=== PATIENT | male | born 1965 | race Caucasian/White ===

== ENCOUNTER → 2021-11-19 10:17 | Outpatient (CLI) | payer OTHER, SELFPAY ==
[2021-11-19 12:09] LABS: Hematocrit 45.7 % (41-53); Hemoglobin 15.2 g/dL (13.5-17.5); Mean Corpuscular HGB Conc 33.2 % (30-36); Mean Corpuscular Hemoglobin 29.9 PG (26-34); Platelet Count 255 X10^3/uL (150-400); Red Blood Cell Count 5.08 X10^6/uL (4.5-5.9); Red Cell Distribution Width 13.8 % (11.6-14.8); White Blood Cell Count 5.5 X10^3/uL (4.5-11.0)
[2021-11-19 12:25] LABS: Alanine Aminotransferase 25 IU/L (<50); Albumin 4.5 g/dL (3.5-5.0); Albumin Globulin Ratio 1.5 (1.0-2.8); Alkaline Phosphatase 69 U/L (38-126); Aspartate Aminotransferase 33 IU/L (17-59); BUN Creatinine Ratio 18.6 (6-22); Bilirubin Total 0.4 mg/dL (0.2-1.3); Blood Urea Nitrogen 18 mg/dL (9-20); Calcium 9.3 mg/dL (8.4-10.2); Carbon Dioxide 31 mmol/L (22-32); Chloride 103 mmol/L (98-107); Cholesterol 260 mg/dL (140-199); Estimated Glomerular Filt Rate > 60 mL/min (>60); Globulin 3.1 g/dL (1.7-4.1); Glucose 90 mg/dL (70-100); HDL Cholesterol 93 mg/dL (40-60); HEMOLYSIS < 15 (0-50); LDL Cholesterol Calculated 131 mg/dL (<100); Potassium 4.5 mmol/L (3.4-5.1); Sodium 140 mmol/L (137-145); Total Protein 7.6 g/dL (6.3-8.2); Triglycerides 182 mg/dL (35-150)
[2021-11-19 12:57] LABS: TSH w/ Reflex to FT4 6.46 uIU/mL (0.47-4.68)
[2021-11-19 13:34] LABS: Free T4, Direct Thyroxine 0.81 ng/dL (0.78-2.19)
== END ==
PROVIDERS: PCP Internal Medicine; Referring Provider Internal Medicine; Visit Provider Internal Medicine
DX: E78.2 Mixed hyperlipidemia (principal); Z12.5 Encounter for screening for malignant neoplasm of prostate
CPT/HCPCS: 36415; 80053; 80061; 84439; 84443; 85027; G0103

== ENCOUNTER → 2022-01-28 16:55 | Outpatient (CLI) | payer OTHER, SELFPAY ==
[2022-01-28 18:03] LABS: Free T3, Triiodothyronine Free 3.79 pg/mL (2.77-5.27); Free T4, Direct Thyroxine 0.87 ng/dL (0.78-2.19)
[2022-01-28 18:16] LABS: Thyroid Stimulating Hormone 4.25 uIU/mL (0.47-4.68)
[2022-01-29 05:37] LABS: Thyroid Peroxidase Antibodies 44 IU/mL (0-34)
== END ==
PROVIDERS: PCP Internal Medicine; Referring Provider Internal Medicine; Visit Provider Internal Medicine
DX: E03.9 Hypothyroidism, unspecified (principal)
CPT/HCPCS: 36415; 84439; 84443; 84481; 86376

== ENCOUNTER → 2022-02-21 09:56 | Outpatient (CLI) | payer OTHER, SELFPAY ==
--- NOTE | 2022-02-21 | DI.CT.S_ITS ---
PROCEDURE: CT SINUS SCREEN WO CON INDICATIONS: Other specified disorders of nose and nasal sinuses TECHNIQUE: Noncontrast 3.0 mm axial images acquired from the frontal sinuses to the mid-sella, with coronal and sagittal reformats. For radiation dose reduction, the following was used: automated exposure control, adjustment of mA and/or kV according to patient size. COMPARISON: None. FINDINGS: Image quality: Excellent. Maxillary Sinuses: No bony remodeling or destruction. Sinuses are clear. Ethmoid Air Cells: No bony remodeling or destruction. There is a 7 mm mucous retention cyst seen involving the anterior left ethmoid air cells. Sinuses are otherwise clear. Sphenoid Sinuses: No bony remodeling or destruction. Sinuses are clear. Frontal Sinuses: No bony remodeling or destruction. Sinuses are clear. Ostiomeatal Complexes: Ostiomeatal complexes are patent. No Irma cells. Miscellaneous: Visualized intra-orbital contents are normal. There are small bilateral negro bullosa is seen, right larger than left. There is mild rightward nasal septal deviation. The arachnoid cyst is incidentally noted involving the anterior aspect of the left middle cranial fossa. IMPRESSION: No significant active paranasal sinus disease is seen. There is mild rightward nasal septal deviation. Small bilateral negro bullosa can be seen. Dictated by: Markie Sierra M.D. on 02/21/2022 at 10:10 Approved by: Markie Sierra M.D. on 02/21/2022 at 10:11
== END ==
PROVIDERS: PCP Internal Medicine; Referring Provider Otolaryngology; Visit Provider Otolaryngology
DX: R44.8 Other symptoms and signs involving general sensations and perceptions (principal); J34.89 Other specified disorders of nose and nasal sinuses; J32.4 Chronic pansinusitis; J34.2 Deviated nasal septum; J34.3 Hypertrophy of nasal turbinates
CPT/HCPCS: 70486

== ENCOUNTER → 2022-11-17 16:09 | Outpatient (CLI) | payer OTHER, SELFPAY ==
[2022-11-17 18:35] LABS: TSH w/ Reflex to FT4 2.18 uIU/mL (0.47-4.68)
[2022-11-17 23:55] LABS: BUN Creatinine Ratio 20.2 (6-22); Blood Urea Nitrogen 19 mg/dL (9-20); Calcium 9.5 mg/dL (8.4-10.2); Carbon Dioxide 28 mmol/L (22-32); Chloride 101 mmol/L (98-107); Cholesterol 253 mg/dL (140-199); Estimated Glomerular Filt Rate > 60 mL/min (>60); Glucose 91 mg/dL (70-100); HDL Cholesterol 74 mg/dL (40-60); HEMOLYSIS 20 (0-50); LDL Cholesterol Calculated 129 mg/dL (<100); Potassium 4.6 mmol/L (3.4-5.1); Sodium 138 mmol/L (137-145); Triglycerides 249 mg/dL (35-150)
[2022-11-18 00:22] LABS: Prostate Specific Antigen Scrn 2.41 ng/mL (0.1-4.0)
== END ==
PROVIDERS: PCP Internal Medicine; Referring Provider Internal Medicine; Visit Provider Internal Medicine
DX: Z00.00 Encounter for general adult medical examination without abnormal findings (principal); E03.9 Hypothyroidism, unspecified; E78.2 Mixed hyperlipidemia; Z12.5 Encounter for screening for malignant neoplasm of prostate
CPT/HCPCS: 36415; 80048; 80061; 84443; G0103

== ENCOUNTER → 2023-01-20 12:15 | Outpatient (CLI) | payer OTHER, SELFPAY ==
--- NOTE | 2023-01-20 12:16 | DI.RAD.S_ITS ---
PROCEDURE: XR KNEE RT 3V INDICATIONS: right knee pain TECHNIQUE: 2 views of the knee were acquired. COMPARISON: None. FINDINGS: Bones: No fractures or dislocations. Osteophytic lipping at the patella. No suspicious bony lesions. Soft tissues: Suprapatellar joint effusion. No suspicious soft tissue calcifications. Chondrocalcinosis. IMPRESSION: No acute osseous abnormality. Chondrocalcinosis. Dictated by: Stas Sanchez M.D. on 01/20/2023 at 15:06 Approved by: Stas Sanchez M.D. on 01/20/2023 at 15:08
== END ==
PROVIDERS: PCP Internal Medicine; Referring Provider Internal Medicine; Visit Provider Internal Medicine
DX: M11.261 Other chondrocalcinosis, right knee (principal); M25.561 Pain in right knee
CPT/HCPCS: 73562

== ENCOUNTER → 2023-11-20 11:00 | Outpatient (CLI) | payer OTHER, SELFPAY ==
[2023-11-20 12:44] LABS: BUN Creatinine Ratio 21.3 (6-22); Blood Urea Nitrogen 19 mg/dL (9-20); Calcium 9.2 mg/dL (8.4-10.2); Carbon Dioxide 32 mmol/L (22-32); Chloride 103 mmol/L (98-107); Cholesterol 215 mg/dL (140-199); Estimated Glomerular Filt Rate > 60 mL/min (>60); Glucose 77 mg/dL (80-110); HDL Cholesterol 85 mg/dL (40-60); HEMOLYSIS < 15 (0-50); LDL Cholesterol Calculated 106 mg/dL (<100); Sodium 139 mmol/L (137-145); Triglycerides 118 mg/dL (35-150)
[2023-11-20 13:10] LABS: Prostate Specific Antigen Scrn 2.06 ng/mL (0.1-4.0); TSH w/ Reflex to FT4 2.04 uIU/mL (0.47-4.68)
== END ==
PROVIDERS: PCP Internal Medicine; Referring Provider Internal Medicine; Visit Provider Internal Medicine
DX: Z12.5 Encounter for screening for malignant neoplasm of prostate (principal); E03.9 Hypothyroidism, unspecified; E78.2 Mixed hyperlipidemia
CPT/HCPCS: 36415; 80048; 80061; 84443; G0103

== ENCOUNTER 2023-12-07 13:17 | Day surgery (SDC) | payer OTHER, SELFPAY ==
--- NOTE | 2023-12-07 | PATH_ITS ---
[facility] Accession Number: [id number] No. of containers..01 Tissue . 01 Material submitted: . rectum - RECTAL POLYP . 01 Diagnosis: RECTAL POLYP: Tubular adenoma. [facility] 12/15/2023 1040 Local . 01 Electronically signed: . Chriss Blackwell MD, Pathologist NPI- [id number] . 01 Gross description: . RECTAL POLYP: Received in formalin is 1 fragment(s) of alfonso, soft tissue measuring 0.5 x 0.4 x 0.3 cm submitted entirely in 1 cassette(s) /ALEX 12/15/2023 1040 Local . 01 Pathologist provided ICD-10: D12.8 . 01 CPT . 557967 Specimen Comment: A courtesy copy of this report has been sent to [phone] Performed at: [address] [id number] MD Chriss Blackwell MD Phone: [phone]
[2023-12-07 13:36] VITALS: BP 142/80; PULSE 60; RESP 16; TEMP 36.5; O2SAT 99
[2023-12-07] MEDS: LACTATED RINGERS 1,000 ML 100 ML IV (13:47)
--- NOTE | 2023-12-07 13:49 | P.HP_ITS ---
History of Present Illness History of Present Illness Date Patient Seen: 12/07/23 Time Patient Seen: 13:49 Chief complaint: SDC Narrative: Mitchell is a 58-year-old man who is here for colonoscopy. He last had 1 about 10 years ago. He had no polyps. No family history of colon cancer. [facility] Medical History (Updated 12/07/23 @ 13:50 by Ben Lora MD) Trigger finger, right little finger Mixed hyperlipidemia Acquired hypothyroidism History of nonmelanoma skin cancer Right-sided sensorineural hearing loss Right-sided tinnitus Varicose veins of left lower extremity without ulcer or inflammation Surgical History Anesthesia Basal cell carcinoma, forehead (~2016) History of varicose vein ligation (~2010) Social History marital status: details: , no children, windows systems engineer Smoking Status: Never smoker alcohol intake: current Meds Home Medications and Allergies Home Medications Medication Instructions Recorded Confirmed Type No Known Home Medications 11/20/23 12/07/23 History Allergies Allergy/AdvReac Type Severity Reaction Status Date / Time No Known Drug Allergies Allergy Verified 12/07/23 13:35 Exam Vital Signs (past 8 hours): - 12/07/23 13:36 Temperature 97.7 F Pulse Rate 60 Respiratory Rate 16 Blood Pressure 142/80 H Pulse Oximetry 99 Oxygen Delivery Method Room Air Oxygen Delivery Method Room Air Const General: healthy appearing Resp Effort & Inspection: normal respiratory effort Assessment & Plan Assessment and plan (1) Colon cancer screening: Status: Acute Plan We reviewed the risks and benefits of colonoscopy for colon cancer screening and he would like to proceed.
[2023-12-07 14:18] VITALS: BP 123/76; PULSE 62; RESP 13; TEMP 36.4; O2SAT 97
[2023-12-07 14:23] VITALS: BP 127/80; PULSE 64; RESP 14; TEMP 36.7; O2SAT 98
--- NOTE | 2023-12-07 14:23 | PM.OP.COLON ---
Operative Date/Time/Diagnoses Date of procedure: 12/07/23 Time of procedure: 14:23 Pre-op diagnosis: Colon cancer screening Post-op diagnosis: same Procedure & Clinicians Study performed: Colonoscopy Same procedure as scheduled: Yes Surgeon: Ben Lora Procedure Notes Procedure in detail: Surgeon: Ben Lora MD Anesthesia: Júnior Menard MD Procedure: The patient was brought to the endoscopy suite, placed in left lateral decubitus position. The patient was connected to monitoring devices. A time-out was performed. Sedation was administered. Once the patient was adequately sedated, a digital rectal exam was performed and was normal. The scope was then inserted and advanced to the cecum where the appendiceal orifice was identified and photographed. The scope was then slowly withdrawn over greater than 6 minutes. The mucosa was thoroughly inspected. There was a 6 mm polyp in the rectum removed with a cold snare. The scope was retroflexed in the rectum. No other abnormalities were noted. The scope was straightened and removed. The patient was awakened and brought to recovery. Scope withdrawal time: 8 minutes Sedation time: 14 minutes EBL: 3 mL Findings: 6 mm rectal polyp Post-procedure Disposition: PACU
[2023-12-07 14:28] VITALS: BP 125/81; PULSE 55; RESP 15; O2SAT 99
== END 2023-12-07 14:42 | disposition home or self-care (01) ==
PROVIDERS: PCP Internal Medicine; Referring Provider Surgery; Visit Provider Surgery
PROC: 0DJD8ZZ Inspection of Lower Intestinal Tract, Via Natural or Artificial Opening Endoscopic (ICD-10-PCS; CPT 45378; principal; 2023-12-07 14:15)
DX: Z12.11 Encounter for screening for malignant neoplasm of colon (principal)
CPT/HCPCS: 45385; J2704

== ENCOUNTER → 2024-11-20 09:41 | Outpatient (CLI) | payer OTHER, SELFPAY ==
[2024-11-20 12:05] LABS: Aspartate Aminotransferase 35 IU/L (17-59); BUN Creatinine Ratio 17.7 (6-22); Blood Urea Nitrogen 17 mg/dL (9-20); Calcium 9.5 mg/dL (8.4-10.2); Carbon Dioxide 28 mmol/L (22-32); Chloride 101 mmol/L (98-107); Cholesterol 224 mg/dL (140-199); Estimated Glomerular Filt Rate > 60 mL/min (>60); Glucose 81 mg/dL (70-99); HDL Cholesterol 71 mg/dL (40-60); HEMOLYSIS < 15 (0-50); LDL Cholesterol Calculated 117 mg/dL (<100); Potassium 5.5 mmol/L (3.4-5.1); Sodium 137 mmol/L (137-145); Triglycerides 180 mg/dL (35-150)
[2024-11-20 12:36] LABS: Prostate Specific Antigen Scrn 3.33 ng/mL (0.1-4.0)
[2024-11-20 12:40] LABS: TSH w/ Reflex to FT4 1.68 uIU/mL (0.47-4.68)
[2024-11-21 15:44] LABS: Rubella Antibody IgG 65.8 IU/mL (>15)
[2024-11-22 13:10] LABS: Mumps Virus IgG Antibody >300.0 AU/mL (Immune >10.9)
== END ==
PROVIDERS: PCP Internal Medicine; Referring Provider Internal Medicine; Visit Provider Internal Medicine
DX: Z00.00 Encounter for general adult medical examination without abnormal findings (principal); Z12.5 Encounter for screening for malignant neoplasm of prostate; E03.9 Hypothyroidism, unspecified; E78.2 Mixed hyperlipidemia; Z20.9 Contact with and (suspected) exposure to unspecified communicable disease
CPT/HCPCS: 36415; 80048; 80061; 84443; 84450; 86735; 86762; 86765; G0103